=== PATIENT | male | born 1955 | race Asian ===

== ENCOUNTER 2017-02-06 16:05 | Emergency (ER) | payer MEDICAID ==
[~2017-02-06] VITALS: Ht 167.6 cm; Wt 85.0 kg
[2017-02-06 16:12] VITALS: Ht 167.6 cm; Wt 85.0 kg
[2017-02-06] MEDS ORDERED: KETOROLAC 30 MG INJ IM STA (16:35)
--- NOTE | 2017-02-06 16:42 | ERD ---
ER Documentation Chief Complaint Date/Time DATE: 02/06/17 TIME: 16:37 Chief Complaint back pain today after lifting someone HPI Patient is a 61 year old male with no past medical history who presents to the ED with low back pain after he tried to pick someone up today. He states that he reached out and picked up someone and felt a spasm in his low back. Denies falls or trauma. Denies blacking out or passin gout. Denies bowel or bladder incontinence. Denies fever or chills. Denies chest pain or cough or shortness of breath. His urinary symptoms. Has taken Tylenol for his pain which which she states helped ROS All systems reviewed and are negative except as per history of present illness. Medications Home Meds Active Scripts Naproxen* (Naprosyn*) 500 Mg Tablet, 500 MG PO BID Y for PAIN AND/OR INFLAMMATION, #30 TAB Prov:LENNY ALBRECHT PA-C 02/06/17 Allergies Allergies: Coded Allergies: No Known Allergy (Unverified , 02/06/17) PMhx/Soc Medical and Surgical Hx: pt denies Medical Hx, pt denies Surgical Hx History of Surgery: No Anesthesia Reaction: No Hx Neurological Disorder: No Hx Respiratory Disorders: No Hx Cardiac Disorders: No Hx Psychiatric Problems: No Hx Miscellaneous Medical Probl: No Hx Alcohol Use: No Hx Substance Use: No Hx Tobacco Use: No Smoking Status: Never smoker FmHx Family History: No coronary disease, No diabetes, No other Physical Exam Vitals Vital Signs Date Time Temp Pulse Resp B/P Pulse Ox O2 Delivery O2 Flow Rate FiO2 02/06/17 16:12 98.4 96 20 160/89 96 Physical Exam GENERAL: Well-developed, well-nourished male. Appears in no acute distress. HEAD: Normocephalic, atraumatic. EYES: Pupils are equally reactive bilaterally. EOMs grossly intact. No conjunctival erythema. ENT: Moist mucous membranes. No uvula deviation. No kissing tonsils. No exudates. NECK: Supple. No lymphadenopathy or thyromegaly. No meningismus. negative kernig. negative brudinski. LUNG: Clear to auscultation bilaterally. No rhonchi, wheezing, rales or coarse breath sounds. HEART: Regular rate and rhythm. No murmurs, rubs or gallops. BACK: No midline tenderness. No spinal or paraspinal tenderness. No step-offs or deformities. No erythema or swelling. No warmth. No masses. Extremities: Equal pulses bilaterally. No peripheral clubbing, cyanosis or edema. No unilateral leg swelling. NEUROLOGIC: Alert and oriented. Moving all four extremities. 5/5 strength in all extremities. Normal speech. Steady gait. SKIN: Normal color. Warm and dry. No rashes or lesions. Capillary refill < 2 seconds Results 24 hrs Current Medications Medications (Trade) Dose Ordered Sig/Sara Route PRN Reason Start Time Stop Time Status Last Admin Dose Admin Ketorolac Tromethamine (Toradol) 30 mg ONCE STAT IM 02/06/17 16:35 02/06/17 16:37 DC 02/06/17 16:41 Procedures/MDM ER COURSE: I kept the patient and/or family informed of laboratory and diagnostic imaging results throughout the emergency room course. IMAGING STUDIES [place] [address] Radiology Main Line: [phone] DIAGNOSTIC IMAGING REPORT Patient: TI WOODRUFF : 1955 Age: 61 Sex: M MR #: [id number] DOS: 02/06/17 1635 Ordering MD: LENNY ALBRECHT PA-C Location: [facility] Room/Bed: PROCEDURE: XR Lumbar Spine. CLINICAL INDICATION: Low back pain. TECHNIQUE: AP, cone-down lateral, and lateral views of the lumbar spine were obtained. COMPARISON: None. FINDINGS: Mineralization is within normal limits. Vertebral bodies are normal in height. No fracture is identified. Facet arthropathy is severe at L4-5 and L5-S1. An associated grade 1 anterolisthesis of L4 relative to L5 is present. The intervertebral discs are normal in height. Paraspinal contours are unremarkable. RPTAT:HJJR IMPRESSION: 1. Degenerative facet arthropathy at L4-5 and L5-S1. 2. Associated grade 1 spondylolisthesis at L4-5. Physician Josue Date Time Electronically viewed and signed by Physician Josue on 02/06/2017 17:41 JR/ CC: LENNY ALBRECHT PA-C MEDICATIONS Toradol 30 mg IM. Tolerated well with no adverse reaction MEDICAL DECISION MAKING: This is a 61-year-old male with no past medical history who presents with low back pain 1 day after lifted someone up. Vital signs were reviewed. Patient is afebrile. Patient is not hypoxic. Patient is nontoxic or ill-appearing. Patient does not have pain on palpation. X-ray is read by radiologist is unremarkable and only shows spondylolisthesis. Patient likely has muscle strain versus sprain. Low suspicion for cauda equine syndrome, spinal epidural hematoma, spinal epidural abscess, osteomyelitis, fracture, aortic dissection, AAA, pyelonephritis, nephrolithiasis, septic stone, obstructed stone. DISCHARGE: At this time, patient is stable for discharge and outpatient management with no new complaints during the ER course. Patient was sent home with copy of imaging report, Naprosyn. Patient will be discharged home with instructions to recheck for new or worsening symptoms such as fever, nausea, weakness, LOC and to follow up with primary care in the next 1-2 days. Patient was advised to return to the ER for any new or worsening symptoms. Plan was discussed and patient and/ or family understands and agrees. Home instructions were given. Departure Diagnosis: Primary Impression: Back pain Back pain location: low back pain Chronicity: acute Back pain laterality: unspecified Sciatica presence: unspecified whether sciatica present Qualified Code: M54.5 - Acute low back pain, unspecified back pain laterality, with sciatica presence unspecified Condition: Stable LENNY ALBRECHT PA-C Feb 06, 2017 16:42
--- NOTE | 2017-02-06 17:41 | RADRPT ---
PROCEDURE: XR Lumbar Spine. CLINICAL INDICATION: Low back pain. TECHNIQUE: AP, cone-down lateral, and lateral views of the lumbar spine were obtained. COMPARISON: None. FINDINGS: Mineralization is within normal limits. Vertebral bodies are normal in height. No fracture is iden tified. Facet arthropathy is severe at L4-5 and L5-S1. An associated grade 1 anterolisthesis of L4 relative to L5 is present. The intervertebral discs are normal in height. Paraspinal contours are unremarkable. RPTAT:HJJR IMPRESSION: 1. Degenerative facet arthropathy at L4-5 and L5-S1. 2. Associated grade 1 spondylolisthesis at L4-5. Physician Josue Date Time Electronically viewed and signed by Physician Josue on 02/06/2017 17:41 /
[2017-02-06] MEDS ORDERED: NAPR-260 PO (17:45)
== END 2017-02-06 17:54 | disposition home or self-care (01) ==
LOC: FTE 16:05
DX: M54.5 Low back pain (principal)
CPT/HCPCS: 72100; J1885; 96372

== ENCOUNTER 2017-07-23 13:25 | Day surgery (SDC) | payer MEDICAID, OTHER ==
[~2017-07-23] VITALS: Ht 172.7 cm; Wt 81.6 kg
[~2017-07-23 13:25] MED LIST: NAPR-260 PO
[2017-07-23 15:30] VITALS: Ht 172.7 cm; Wt 81.6 kg
--- NOTE | 2017-07-23 16:34 | OPPN ---
Date/Time of Note Date/Time of Note DATE: 07/23/17 TIME: 16:33 Operative Report Preoperative Diagnosis Screening Postoperative Diagnosis Internal hemorrhoids No colon neoplasm was identified Operation/Procedure Performed Colonoscopy Surgeon see signature line physician's assistant None Anesthesia: moderate sedation Estimated blood loss: none Transfusion Required none Specimen None Grafts/Implants none Complications none JOAQUÍN LOPES MD Jul 23, 2017 16:34
[2017-07-23] MEDS ORDERED: HCTZ PO (16:40)
[2017-07-23 17:20] VITALS: BP 142/110; PULSE 93; RESP 15
[2017-07-23] MEDS ORDERED: MIDAZOLAM 1 MG/ML 2 ML INJ ONE ×3 (18:21)
[2017-07-23] MEDS ORDERED: FENTAnyl 50 MCG/ML VIAL ONE (18:21)
--- NOTE | 2017-07-23 21:37 | GILP ---
DATE OF PROCEDURE: NAME OF PROCEDURE: Colonoscopy. SURGEON: Joaquín Connors MD PREOPERATIVE DIAGNOSIS: Screening colonoscopy. POSTOPERATIVE DIAGNOSES: 1. Colonoscopy all the way to the cecum. 2. Internal hemorrhoids. 3. No colon neoplasm was identified. INDICATION FOR THE PROCEDURE: Mr. Sourav Tripathi is a 61-year-old male patient who was scheduled for s creening colonoscopy. The procedure and possible complications were well explained to the patient. The patient understood and consented to the procedure. DESCRIPTION OF PROCEDURE: Under the influence of fentanyl and Versed, the colonoscope was carefully introduced in the rectum and under direct vision, it was advanced all the way to the cecum. FINDINGS: The patient had internal hemorrhoids. No colon neoplasm was identified. He tolerated the procedure very well. There was no complication from the procedure. At the end of the procedure, he was awake with stable vital signs, and he was discharged home to [facility]. IMPRESSION: Please see postoperative diagnoses. PLAN: Next screening colonoscopy in 10 years. Dictated By: JOAQUÍN SPICER/ART Conf#: [id number] DID#: [id number]
== END 2017-07-23 19:16 | disposition home or self-care (01) ==
LOC: GIL 13:25
PROVIDERS: ATTEND Internal Medicine Gastroenterology
DX: Z12.11 Encounter for screening for malignant neoplasm of colon (principal); I10 Essential (primary) hypertension; K64.8 Other hemorrhoids
CPT/HCPCS: 45378; J2250; J3010